=== PATIENT | male | born 1950 | race Two or more races ===

== ENCOUNTER 2016-07-17 07:47 | Emergency (ER) ==
[2016-07-17 07:56] VITALS: BP 111/69; TEMP 97.3; BMI 29.1
[2016-07-17] MEDS ORDERED: DECADRON 4 MG/ML SDV IM STA (08:10)
[2016-07-17] MEDS ORDERED: TORADOL IM STA (08:11)
--- NOTE | 2016-07-17 08:33 | DI ---
EXAM: Three views of the right foot HISTORY: Right foot pain with no trauma. COMPARISON: None FINDINGS: There is moderate hallux valgus deformity with mild lateral subluxation at the first MTP j oint with osteophyte formation. The remaining joint spaces are maintained. There is no displaced f racture or dislocation. The soft tissues are unremarkable. There is a small plantar spur. IMPRESSION: Moderate hallux valgus deformity and degenerative change of the first MTP joint.
--- NOTE | 2016-07-17 09:18 | ED.PDOC ---
General ED Provider: Dr. JOAO AREVALO Chief Complaint: Foot Pain/Injury Stated Complaint: right foot pain Time Seen by Physician: 08:00 Mode of Arrival: Walk-In Information Source: Patient Exam Limitations: No limitations Nursing and Triage Documentation Reviewed and Agree: Yes Musculoskeletal Complaint Exam - Ankle/Foot Complaint/Exam Location of Injury: Reports: Right, Foot, Toe #1 Mechanism of Injury: Reports: No known trauma Onset/Duration: today Symptoms Are: Reports: Still present Onset of Pain: Reports: Immediate Initial Severity: Moderate Current Severity: Moderate Location: Reports: Discrete Character: Reports: Aching Alleviating: Reports: None Aggravating: Reports: Movement, Weight bearing, Prolonged standing Able to Bear Weight: Yes Associated Signs and Symptoms: Reports: Swelling. Denies: Redness, Bruising, Fever, Weakness, Numbness, Tingling Gout Risk Factors: Reports: >40 years old, HTN Related Surgical History: Reports: None Lower Extremity Findings: Present: Swelling (right foot), Erythema Achilles Tendon Abnormality: No Tenderness: Present: Digits (1st). Absent: Medial malleolus, Lateral malleolus , Heel, Midfoot Differential Diagnosis: Closed Fracture Review of Systems - Review Of Systems Constitutional: Reports: No symptoms Eyes: Reports: No symptoms Ears, Nose, Mouth, Throat: Reports: No symptoms Respiratory: Reports: No symptoms Cardiac: Reports: No symptoms GI: Reports: No symptoms : Reports: No symptoms Musculoskeletal: Reports: Joint pain (1st and 2nd toe) Skin: Reports: No symptoms Neurological: Reports: No symptoms Endocrine: Reports: No symptoms Hematologic/Lymphatic: Reports: No symptoms All Other Systems: Reviewed and Negative Past Medical History - Past Medical History Previously Healthy: No Endocrine: Reports: Dyslipidemia Cardiovascular: Reports: Hypertension Respiratory: Reports: None Hematological: Reports: None Gastrointestinal: Reports: None Genitourinary: Reports: None Neuro/Psych: Reports: None Musculoskeletal: Reports: None Cancer: Reports: None - Surgical History General Surgical History: Reports: Unknown - Family History Family History: Reports: Unknown - Social History Smoking Status: Current some day smoker, Light tobacco smoker Hx Substance Use: No Alcohol Screening: None Physical Exam - Physical Exam Appearance: Well-appearing, No pain distress, Well-nourished Eyes: HIEN, EOMI, Conjunctiva clear ENT: Ears normal, Nose normal, Oropharynx normal Respiratory: Airway patent, Breath sounds clear, Breath sounds equal, Respirations nonlabored Cardiovascular: RRR, Pulses normal, No rub, No murmur GI/: Soft, Nontender, No masses, Bowel sounds normal, No Organomegaly Musculoskeletal: Limited ROM (1st toe due to pain ) Skin: Warm, Dry, Normal color Neurological: Sensation intact, Motor intact, Reflexes intact, Cranial nerves intact, Alert, Oriented Psychiatric: Affect appropriate, Mood appropriate Critical Care Note - Critical Care Note Total Time (mins): 0 Course - Course Orders, Labs, Meds: Lab Review 07/17/16 08:20 Uric Acid 8.9 H Orders Category Date Time Status URIC ACID Stat LAB 07/17/16 08:10 Ordered Dexamethasone 4 mg/ml Inj [Decadron 4 mg/ml Sdv] MEDS 07/17/16 08:10 Stat 4 mg IM ONCE STA Ketorolac Tromethamine [Toradol] MEDS 07/17/16 08:11 Stat 30 mg IM ONCE STA FOOT, RIGHT 3 VIEWS Stat RADS 07/17/16 08:10 Ordered Medications Discontinued Medications Generic Name Dose Route Start Last Admin Trade Name Esequielq PRN Reason Stop Dose Admin Dexamethasone Sodium Phosphate 4 mg 07/17/16 08:10 07/17/16 08:29 Decadron 4 Mg/Ml Sdv IM 07/17/16 08:11 4 mg ONCE STA Administration Ketorolac Tromethamine 30 mg 07/17/16 08:11 07/17/16 08:28 Toradol IM 07/17/16 08:12 30 mg ONCE STA Administration Vital Signs: Temp Pulse Resp BP Pulse Ox 07/17/16 07:51 97.3 F L 118 H 20 111/69 94 L Departure - Departure Time of Disposition: 09:18 Disposition: HOME SELF-CARE Discharge Problem: Acute gout Qualifiers: Gout site: foot Gout etiology: unspecified cause Laterality: right Qualifier Code: (M10.9) Gout, unspecified Instructions: Gout (ED) Condition: Good Pt referred to PMD for follow-up: No Additional Instructions: Please call your Family Physician as soon as possible to schedule a follow-up appointment. Allergies/Adverse Reactions: Allergies No Known Allergies Allergy (Unverified 07/17/16 07:49) Home Medications: Ambulatory Orders Aspirin [Aspirin EC] 81 mg PO DAILYWM 07/17/16 Atorvastatin Calcium 40 mg PO DAILY 07/17/16 Furosemide [Lasix] 40 mg PO DAILY 07/17/16 Lisinopril [Zestril] 5 mg PO DAILY 07/17/16 Metoprolol Tartrate [Lopressor] 25 mg PO BID 07/17/16 Spironolactone 25 mg PO DAILY 07/17/16
== END 2016-07-17 09:44 | disposition home or self-care (01) ==
LOC: ED 07:47
DX: M10.9 Gout, unspecified (principal); I10 Essential (primary) hypertension; E78.5 Hyperlipidemia, unspecified; F17.210 Nicotine dependence, cigarettes, uncomplicated
CPT/HCPCS: 36415; 84550; 96372; 99282